=== PATIENT | male | born 1980 | race Caucasian/White ===

== ENCOUNTER 2019-08-15 14:39 | Emergency (ER) | payer OTHER ==
[2019-08-15 14:45] VITALS: BP 157/98; PULSE 62; RESP 18; TEMP 97.5
--- NOTE | 2019-08-15 15:16 | XR ---
Left hand HISTORY: Trauma and pain 2 views of the left hand There is a comminuted tuft fracture of the third digit of the left hand with mild displacement. No di slocation. Metallic density dorsal to the middle phalanx of the third digit and slightly medial is me asuring only 1 mm in size and is of questionable etiology. IMPRESSION: Fracture, foreign body
[2019-08-15] MEDS ORDERED: LIDOCAINE 1% INJ 10MG/ML (20 ML MDV) SQ ONE ×2 (15:39→15:58)
--- NOTE | 2019-08-15 15:48 | ED ---
General Adult HPI - General Source: patient Mode of arrival: ambulatory Limitations: no limitations <Britney Munson - Last Filed: 08/16/19 00:51> <Lillian Baker - Last Filed: 08/16/19 12:46> - General Chief complaint: Trauma Stated complaint: [facility]-Hand Injury Time Seen by Provider: 08/15/19 14:48 - History of Present Illness Initial comments: Patient is a 38-year-old male presenting to the emergency Department with complaints of a left finger injury that happened prior to arrival at work today. Patient states he was moving sheets of metal from one place to another when his left middle finger got pinched in between the sheets. Patient states he had instant bleeding and wrapped it up and came to the ER. Patient states his last tetanus vaccine was approximately 3 years ago. Patient denies being on blood thinners. Patient has no pertinent past medical history. Patient has no ALLERGIES. Upon arrival to ER, vital signs are stable. Bleeding is controlled at this time. (Britney Munson) - Related Data Previous Rx's Medication Instructions Recorded Cephalexin [Keflex] 500 mg PO BID 7 Days #14 cap 08/15/19 Allergies Allergy/AdvReac Type Severity Reaction Status Date / Time No Known Allergies Allergy Verified 08/15/19 14:45 Review of Systems ROS Other: All systems not noted in ROS Statement are negative. <Britney Munson - Last Filed: 08/16/19 00:51> ROS Other: All systems not noted in ROS Statement are negative. <Lillian Baker - Last Filed: 08/16/19 12:46> ROS Statement: Those systems with pertinent positive or pertinent negative responses have been documented in the HPI. Past Medical History History of Any Multi-Drug Resistant Organisms: None Reported Past Surgical History: Back Surgery Additional Past Surgical History / Comment(s): spinal fusion Past Psychological History: No Psychological Hx Reported Smoking Status: Former smoker Past Alcohol Use History: Daily Past Drug Use History: None Reported <Britney Munson - Last Filed: 08/16/19 00:51> General Exam Limitations: no limitations <Britney Munson - Last Filed: 08/16/19 00:51> - General Exam Comments Initial Comments: GENERAL: Well-appearing, well-nourished and in no acute distress. HEAD: Atraumatic, normocephalic. EYES: Pupils equal round and reactive to light, extraocular movements intact, sclera anicteric, conjunctiva are normal. ENT: TMs normal, nares patent, oropharynx clear without exudates. Moist mucous membranes. NECK: Normal range of motion, supple without lymphadenopathy or JVD. LUNGS: Breath sounds clear to auscultation bilaterally and equal. No wheezes rales or rhonchi. HEART: Regular rate and rhythm without murmurs, rubs or gallops. ABDOMEN: Soft, nontender, normoactive bowel sounds. No guarding, no rebound. No masses appreciated. : Deferred EXTREMITIES: Patient has a 1.5 cm laceration to the distal aspect of the left middle digit going from one side of the nail, underneath the nail to the other side.. Patient has pain with digit flexion. No pitting or edema. No clubbing or cyanosis. NEUROLOGICAL: Cranial nerves II through XII grossly intact. Normal speech, normal gait. PSYCH: Normal mood, normal affect. SKIN: Warm, Dry, normal turgor, no rashes or lesions noted. (Britney Munson) Course Vital Signs 08/15/19 14:40 Temperature 97.5 F L Pulse Rate 62 Respiratory 18 Rate Blood Pressure 157/98 O2 Sat by Pulse 99 Oximetry Procedures - Laceration Laceration #1 Consent Obtained: verbal consent Indication: laceration Site: other (Distal Left middle finger) Size (cm): 0 (1.5cm) Description: linear Depth: simple, single layer Anesthetic Used: lidocaine 1% Anesthesia Technique: nerve block Amount (mls): 5 Pre-repair: irrigated extensively Type of Sutures: vicryl Size of Sutures: 5-0 Number of Sutures: 4 Technique: simple, interrupted Patient Tolerated Procedure: well <Britney Munson - Last Filed: 08/16/19 00:51> - Laceration Laceration #1 Additional Comments: Patient's fingernail was cut back to reveal underlying laceration. Laceration was repaired with absorbable sutures. Patient will follow up with orthopedics. (Britney Munson) Medical Decision Making <Britney Munson - Last Filed: 08/16/19 00:51> <Lillian Baker - Last Filed: 08/16/19 12:46> - Medical Decision Making Patient is a 38-year-old male presenting with a 1.5cm laceration to the left middle finger, across the nailbed however not involving the nail itself. X-rays reveal a comminuted tuft fracture of the third digit of the left hand with mild displacement. Patient was given a digital block, nail was cut back to reveal laceration, laceration was repaired with 4 Vicryl sutures. Patient tolerated procedure well. Patient will follow up with orthopedics and will also be started on Keflex. Patient is in agreement with this plan of care. Return para meters were discussed with the patient he verbalizes understanding. Case discussed with Dr. Baker. (Britney Munson) I was available for consultation in the emergency department. The history and physical exam were done by the midlevel provider. I was consulted for this patients care. I reviewed the case with the midlevel provider and based on their presentation of the patient, I agree with the assessment, medical decision making and plan of care as documented. Chart was dictated using [employer] dictation software. Attempts were made to correct any dictation errors however some typographical errors may persist. (Lillian Baker) Disposition Is patient prescribed a controlled substance at d/c from ED?: No <Britney Munson - Last Filed: 08/16/19 00:51> <Lillian Baker - Last Filed: 08/16/19 12:46> Clinical Impression: Open fracture of tuft of distal phalanx of finger Disposition: HOME SELF-CARE Condition: Stable Instructions (If sedation given, give patient instructions): Finger Fracture (ED) Additional Instructions: Please return to the Emergency Department if symptoms worsen or any other concerns. Follow-up with orthopedics as discussed. Take Tylenol and/or Motrin for pain relief. Keep finger elevated. Take antibiotic as prescribed. Prescriptions: Cephalexin [Keflex] 500 mg PO BID 7 Days #14 cap Referrals: None,Stated [Primary Care Provider] - 1-2 days
[2019-08-15] MEDS: ceFAZolin 1,000 MG VIAL (IM USE) IM STA ×2 (16:56→17:01)
[2019-08-15] MEDS ORDERED: ceFAZolin 1,000 MG VIAL (IM USE) IM STA (17:02)
== END 2019-08-15 17:20 | disposition home or self-care (01) ==
LOC: EC 14:39
DX: S62.633B Displaced fracture of distal phalanx of left middle finger, initial encounter for open fracture (principal); Z87.891 Personal history of nicotine dependence; W23.0XXA Caught, crushed, jammed, or pinched between moving objects, initial encounter; Y93.89 Activity, other specified; Y92.69 Other specified industrial and construction area as the place of occurrence of the external cause; Y99.0 Civilian activity done for income or pay
CPT/HCPCS: 73120; 99283; 12001; 96372; J0690; J2001